=== PATIENT | male | born 2000 | race Caucasian/White ===

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

== ENCOUNTER 2019-05-03 17:51 | Emergency (ER) | payer BC ==
--- OUTSIDE RECORDS SUMMARY | 2019-05-03 17:55 | XMS REPORT | Summary of Care ---
:2000 Author Organization [facility] Address [address] [address] Care Team Providers Name Role Phone Deuce Valentin Primary Care Provider Reason for Visit Reason Comments Follow Up pt presents for follow up with medication Other pt has questions about how to go about donating live organs Encounter Details Date Type Department Care Team Description 04/30/2019 Office Visit [facility] Deuce Valentin MD Anxiety (Primary Dx); Practice [address] [facility] Bariatric surgery status [address] [place], [place] [id number] [place] [address] [phone] Allergies Active Allergy Reactions Severity Noted Date Comments Environmental Rash 05/17/2014 documented as of this encounter (statuses as of 04/30/2019) Medications Medication Sig Dispensed Refills Start Date End Date Status Multiple Vitamin Take 1 Tab 0 Active (MULTI-VITAMIN DAILY by mouth PO) DAILY. Cholecalciferol Take 1 Tab 0 Active (VITAMIN D3) 5000 by mouth units Oral Tab DAILY. escitalopram Take 1 Tab 30 Tab 2 04/30/2019 Active (LEXAPRO) 10 MG Oral by mouth TabIndications: DAILY. Anxiety escitalopram Take 1 Tab 30 Tab 1 03/26/2019 Discontinued (LEXAPRO) 10 MG Oral by mouth 0 (Reorder) TabIndications: DAILY. 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/08/2018 Recurrent major depressive disorder, in partial remission 08/08/2018 Bariatric surgery status 02/01/2018 Overview: May 01, 2017 Binge eating disorder 04/11/2016 Hyperinsulinemia 07/29/2015 Childhood obesity 07/02/2015 Back pain 08/28/2014 Depression 08/28/2014 Anxiety 08/28/2014 Hypothyroidism 05/17/2014 Unspecified asthma(493.90) 05/17/2014 documented as of this encounter (statuses as of 04/30/2019) Resolved Problems Problem Noted Date Resolved Date Morbid obesity due to excess calories 08/08/2018 08/08/2018 BMI, pediatric, 99th percentile or greater for age 0507/02/2015 08/08/2018 documented as of this encounter (statuses as of 04/30/2019) Immunizations Name Administration Dates Next Due DTAP Vaccine 09/29/2003, 06/15/2000, 1999, 1999, 1999 HIB 4 Dose Schedule 06/15/2000, 1999, 1999, 1999 Hepatitis A Vaccine Peds 10/03/2011, 12/04/2007 Hepatitis B Vaccine 1999, 1999, 1999, 1999, 1999 Human Papillomavirus 04/10/2012, 04/09/2012, 12/06/2011, 10/03/2011 Influenza (IM) Preservative Free 11/18/2016, 12/06/2011, 11/14/2008, 12/04/2007 Influenza Vaccine Peds Nasal 12/04/2007 Influenza Virus Vaccine Pres Free 6-35 11/18/2016 Months Influenza Virus Vaccine, Unspecified 12/06/2011, 11/14/2008 MENINGOCOCCAL CONJUGATE VACCINE 11/18/2016, 12/04/2007 MMR 09/29/2003, 06/15/2000 Meningococcal B Vaccine,Recombinant 08/25/2015, 07/07/2015 Novel [id number], Injectable 01/27/2009 Pneumococcal Conjugate Vaccine 04/09/2001 Pneumococcal Conjugate(13 Valent) 04/08/2001 Polio - Inactivated Vaccine 12/18/2003, 09/29/2003, 1999, 1999 Poliomyelitis vaccine 12/18/2003, 09/29/2003, 1999, 1999 TDAP Vaccine 06/03/2009 Varicella Vaccine Live 06/03/2009, 06/15/2000 documented as of this encounter Social History Tobacco Use Types Packs/Day Years Used Date Never Smoker Smokeless Tobacco: Never Used Alcohol Use Drinks/Week oz/Week Comments No 0 Standard drinks or equivalent 0.0 Sex Assigned at Date Recorded Not on file documented as of this encounter Last Filed Vital Signs Vital Sign Reading Time Taken Comments Blood Pressure 130/76 04/30/2019 9:52 AM EDT Pulse 67 04/30/2019 9:52 AM EDT Temperature - - Respiratory Rate - - Oxygen Saturation 100% 04/30/2019 9:52 AM EDT Inhaled Oxygen Concentration - - Weight 93.7 kg (206 lb 9.6 oz) 04/30/2019 9:52 AM EDT Height 185.4 cm (6' 1") 04/30/2019 9:52 AM EDT Body Mass Index 27.26 04/30/2019 9:52 AM EDT documented in this encounter Progress Notes Deuce Valentin MD - 04/30/2019 10:20 AM EDT PATIENT: Dionicio Weston : 2000 DATE OF SERVICE: 04/30/2019 CHIEF COMPLAINT: Chief Complaint Patient presents with ? Follow Up pt presents for follow up with medication ? Other pt has questions about how to go about donating live organs Subjective HISTORY OF PRESENT ILLNESS: Dionicio Weston is a 19-y.o. male. Hx of obesity s/p gastric bypass as a teen plus mood DO in to recheck his anxiety . 08/07 put on lexapro but he never came back Then 02/06 put on lexapro and not take it long by pill count. summer had back pain that was severe. Better with PT. 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 Mood was ok till beginning of this year and got anxious again. Work stress as being pushed to finish cars DANIELA , BV shaking and can cry . Went on the lexapro 10 mg and felt better. No more attacks He also wants to be a living organ donor Wants to know how Past Medical History: Diagnosis Date ? Anxiety and depression ? Asthma ? Atypical nevi Dr Flores ? Back pain ? Eating disorder ? High cholesterol ? Joint pain ? KAROLINA (obstructive sleep apnea) mild ? Pre-diabetes Family History Problem Relation Age of Onset ? Diabetes Other ? Hypertension Other ? Stroke Other ? Prostate Cancer Other ? Diabetes Mother ? GI Mother ? Depression/Depressed Mother ? Hypertension Father ? High Cholesterol Father ? Hypertension Other ? Asthma Other ? Arthritis Other ? Thyroid Disease Other ? Heart: Premature Coronary Disease (M<55; F<65) Other Current Outpatient Medications Medication Sig ? Cholecalciferol (VITAMIN D3) 5000 units Oral Tab Take 1 Tab by mouth DAILY. ? escitalopram (LEXAPRO) 10 MG Oral Tab Take 1 Tab by mouth DAILY. ? Multiple Vitamin (MULTI-VITAMIN DAILY PO) Take 1 Tab by mouth DAILY. No current facility-administered medications for this visit. Allergies Allergen Reactions ? Environmental Rash Social History Socioeconomic History ? Marital status: Single Spouse name: Not on file ? Number of children: Not on file ? Years of education: Not on file ? Highest education level: Not on file Occupational History ? Not on file Social Needs ? Financial resource strain: Not on file ? Food insecurity Worry: Not on file Inability: Not on file ? Transportation needs Medical: Not on file Non-medical: Not on file Tobacco Use ? Smoking status: Never Smoker ? Smokeless tobacco: Never Used Substance and Sexual Activity ? Alcohol use: No Alcohol/week: 0.0 standard drinks ? Drug use: No ? Sexual activity: Never Lifestyle ? Physical activity Days per week: Not on file Minutes per session: Not on file ? Stress: Not on file Relationships ? Social connections Talks on phone: Not on file Gets together: Not on file Attends [employer] service: Not on file Active member of club or organization: Not on file Attends meetings of clubs or organizations: Not on file Relationship status: Not on file ? Intimate partner violence Fear of current or ex partner: Not on file Emotionally abused: Not on file Physically abused: Not on file Forced sexual activity: Not on file Other Topics Concern ? Not on file Social History Narrative ? Not on file REVIEW OF SYSTEMS: ROS Objective PHYSICAL EXAM: VITALS: BP 130/76 (BP Location: Right arm, Patient Position: Sitting) | Pulse 67 | Ht 6' 1" (1.854 m) | Wt 206 lb 9.6 oz (93.7 kg) | SpO2 100% | BMI 27.26 kg/m Body mass index is 27.26 kg/m. Physical Exam Vitals signs reviewed. Constitutional: Appearance: He is not ill-appearing (weight is staying off). Cardiovascular: Rate and Rhythm: Normal rate and regular rhythm. Pulmonary: Effort: Pulmonary effort is normal. No respiratory distress. Psychiatric: Comments: Dress and hygiene good Good eye contact Thoughts and speech normal Affect Appropriate Mood normal ASSESSMENT / IMPRESSION: ICD-9-CM ICD-10-CM 1. Anxiety hx of non compliance. I would try to stay on lexapro for now and if just anxiety can come off in few mo but if depression to stay on the med 300.00 F41.9 escitalopram (LEXAPRO) 10 MG Oral Tab 2. Bariatric surgery status last labs in the summer. Told need yearly check. V45.86 Z98.84 Looked up on line can sign up to be donor but also will need labs to check for genetic matches Plan Author: Deuce Valentin MD 04/30/2019 10:22 documented in this encounter Plan of Treatment Health Maintenance Due Date Last Done Comments DTaP/Tdap/Td Vaccines (7 - 06/04/2019 06/03/2009, 09/29/2003, Tdap) 06/15/2000, Additional history exists DEPRESSION SCREENING 03/26/2020 03/26/2019, 02/01/2018 INFLUENZA VACCINE (#1) 2020 11/18/2016, 12/06/2011, Postponed from 11/14/2008, Additional 10/21/2018 (Patient history exists refused) PNEUMOCOCCAL 0-64 YRS Completed 04/09/2001, 04/08/2001 HEPATITIS A IMMUNIZATION Completed 10/03/2011, 12/04/2007 SERIES HPV IMMUNIZATION SERIES Completed 04/10/2012, 04/09/2012, 12/06/2011, Additional history exists MENINGOCOCCAL VACCINE IMM Completed 11/18/2016, 12/04/2007 documented as of this encounter Goals Goal Patient Goal Associated Recent Patient-Stated? Author Type Problems Progress Depression Depression 14 No belinda Valentin (PHQ-9) (02/01/2018 MD Deuce total score < 5 3:36 PM EST) Note: This is an individualized treatment (depression) goal for Dionicio Weston: Displayed above is your goal for a depression screening (PHQ-9) score that would indicate good control of your depression. Keep a regular sleep schedule Lifestyle No Deuce Valentin MD Note: This is an individualized lifestyle goal for Dionicio Weston: Please maintain a regular sleep schedule. This may help with some symptoms of depression. Keep immunizations current Lifestyle No Deuce Valentin MD Note: This is an individualized lifestyle goal for Dionicio Weston: Please be sure to keep up-to-date on recommended immunizations. For example, this would include a yearly influenza vaccine. Immunization status can be seen by looking at the Health Maintenance sections of your [facility], Plan of Care, and any After Visit Summaries. Take all prescribed medications as directed Self-management No Deuce Valentin MD Note: This is an individualized self-management goal for Dionicio Weston: Please take all prescribed medications as directed. 1. Do not skip doses. If you cannot afford your medications, talk with your doctor. 2. Use a pill reminder system such as a pill box if needed. Your pharmacist can help you with this. 3. Contact your Pharmacy 5 days before your medication runs out. If you cannot take your medications for any reasons, talk with your doctor. 4. Please bring all of your medication bottles and inhalers (or a list of all your medications/inhalers) with you to every visit. Potential barriers to meeting all of your care plan goals will continue to be addressed on an ongoing basis. documented as of this encounter Results Not on filedocumented in this encounter Visit Diagnoses Diagnosis Anxiety Anxiety state, unspecified Bariatric surgery status documented in this encounter Insurance Payer Benefit Plan / Subscriber ID Effective Dates Phone Address Type Group [employer] [id number] 2016-Present [employer] (Work) [id number] documented as of this encounter
--- OUTSIDE RECORDS SUMMARY | 2019-05-03 17:55 | XMS REPORT | Summary of Care ---
:2000 Author Organization [facility] Address [address] [address] Care Team Providers Name Role Phone Deuce Valentin Primary Care Provider Reason for Visit Reason Comments Anxiety would like to get back on medication Encounter Details Date Type Department Care Team Description 03/26/2019 Office Visit [facility][1] Sharlene Magallanes Anxiety (Primary Dx) [address] [place] [address] [facility] [phone] [place] [address] [phone] Allergies Active Allergy Reactions Severity Noted Date Comments Environmental Rash 05/17/2014 documented as of this encounter (statuses as of 03/26/2019) Medications Medication Sig Dispensed Refills Start Date End Date Status Multiple Vitamin Take 1 Tab by 0 Active (MULTI-VITAMIN DAILY PO) mouth DAILY. Cholecalciferol (VITAMIN Take 1 Tab by 0 Active D3) 5000 units Oral Tab mouth DAILY. escitalopram (LEXAPRO) 10 Take 1 Tab by 30 Tab 1 03/26/2019 Active MG Oral TabIndications: mouth DAILY. 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/08/2018 Recurrent major depressive disorder, in partial remission 08/08/2018 Bariatric surgery status 02/01/2018 Overview: May 01, 2017 Binge eating disorder 04/11/2016 Hyperinsulinemia 07/29/2015 Childhood obesity 07/02/2015 Back pain 08/28/2014 Depression 08/28/2014 Anxiety 08/28/2014 Hypothyroidism 05/17/2014 Unspecified asthma(493.90) 05/17/2014 documented as of this encounter (statuses as of 03/26/2019) Resolved Problems Problem Noted Date Resolved Date Morbid obesity due to excess calories 08/08/2018 08/08/2018 BMI, pediatric, 99th percentile or greater for age 0507/02/2015 08/08/2018 documented as of this encounter (statuses as of 03/26/2019) Immunizations Name Administration Dates Next Due Influenza (IM) Preservative Free 11/18/2016 MENINGOCOCCAL CONJUGATE VACCINE 11/18/2016 Meningococcal B Vaccine 08/25/2015, 07/07/2015 documented as of this encounter Social History Tobacco Use Types Packs/Day Years Used Date Never Smoker Smokeless Tobacco: Never Used Alcohol Use Drinks/Week oz/Week Comments No 0 Standard drinks or equivalent 0.0 Sex Assigned at Date Recorded Not on file Job Start Date Occupation Industry Not on file Not on file Not on file Travel History Travel Start Travel End No recent travel history available. documented as of this encounter Last Filed Vital Signs Vital Sign Reading Time Taken Comments Blood Pressure 130/64 03/26/2019 8:22 AM EST Pulse 66 03/26/2019 8:22 AM EST Temperature - - Respiratory Rate - - Oxygen Saturation 99% 03/26/2019 8:22 AM EST Inhaled Oxygen Concentration - - Weight 94.8 kg (209 lb) 03/26/2019 8:22 AM EST Height 185.4 cm (6' 1") 03/26/2019 8:22 AM EST Body Mass Index 27.57 03/26/2019 8:22 AM EST documented in this encounter Patient Instructions Patient InstructionsSharlene Magallanes FNP - 03/26/2019 8:20 AM ESTRe start Lexapro Follow up with Dr Valentin or Ms Bell in 4-6 weeks Call if any issues 8 :39 AM EST documented in this encounter Progress Notes Sharlene Magallanes FNP - 03/26/2019 8:20 AM EST PATIENT: Dionicio Weston : 2000 DATE OF SERVICE: 03/26/2019 CHIEF COMPLAINT: Chief Complaint Patient presents with Anxiety would like to get back on medication Subjective HISTORY OF PRESENT ILLNESS: Dionicio Weston is a 19-y.o. male. HPI Wants to go back on anxiety medication - last one was Lexapro 02/06. Past Medical History: Diagnosis Date Anxiety and depression Asthma Atypical nevi Dr Flores Back pain Eating disorder High cholesterol Joint pain [place] (obstructive sleep apnea) mild Pre-diabetes Family History Problem Relation Age of Onset Diabetes Other Hypertension Other Stroke Other Prostate Cancer Other Diabetes Mother GI Mother Depression/Depressed Mother Hypertension Father High Cholesterol Father Hypertension Other Asthma Other Arthritis Other Thyroid Disease Other Heart: Premature Coronary Disease (M<55; F<65) Other Current Outpatient Medications Medication Sig Cholecalciferol (VITAMIN D3) 5000 units Oral Tab Take 1 Tab by mouth DAILY. escitalopram (LEXAPRO) 10 MG Oral Tab Take 1 Tab by mouth DAILY. Multiple Vitamin (MULTI-VITAMIN DAILY PO) Take 1 Tab by mouth DAILY. No current facility-administered medications for this visit. Allergies Allergen Reactions Environmental Rash Social History Socioeconomic History Marital status: Single Spouse name: Not on file Number of children: Not on file Years of education: Not on file Highest education level: Not on file Occupational History Not on file Social Needs Financial resource strain: Not on file Food insecurity Worry: Not on file Inability: Not on file Transportation needs Medical: Not on file Non-medical: Not on file Tobacco Use Smoking status: Never Smoker Smokeless tobacco: Never Used Substance and Sexual Activity Alcohol use: No Alcohol/week: 0.0 standard drinks Drug use: No Sexual activity: Never Lifestyle Physical activity Days per week: Not on file Minutes per session: Not on file Stress: Not on file Relationships Social connections Talks on phone: Not on file Gets together: Not on file Attends religion service: Not on file Active member of club or organization: Not on file Attends meetings of clubs or organizations: Not on file Relationship status: Not on file Intimate partner violence Fear of current or ex partner: Not on file Emotionally abused: Not on file Physically abused: Not on file Forced sexual activity: Not on file Other Topics Concern Not on file Social History Narrative Not on file Over the last 2 weeks, have you been feeling down, depressed, anxious, or hopeless?: 1 Over the past 2 weeks, have you felt little interest or pleasure in doing things ?: 1 REVIEW OF SYSTEMS: Review of Systems Constitutional: Negative for malaise/fatigue. Psychiatric/Behavioral: Negative for depression, hallucinations, substance abuse and suicidal ideas.The patient is nervous/anxious and has insomnia. Objective PHYSICAL EXAM: VITALS: BP 130/64 | Pulse 66 | Ht 6' 1" (1.854 m) | Wt 209 lb (94.8 kg) | SpO2 99% | BMI 27.57kg/m Body mass index is 27.57 kg/m. Physical Exam Vitals signs and nursing note reviewed. Constitutional: Appearance: Normal appearance. Skin: General: Skin is warm and dry. Neurological: Mental Status: He is alert and oriented to person, place, and time. Psychiatric: Mood and Affect: Mood is anxious. Speech: Speech normal. Behavior: Behavior is cooperative. Thought Content: Thought content does not include homicidal or suicidal plan. Cognition and Memory: Cognition normal. Comments: Anxiety affecting work - poor sleep, panic attacks, worry. No recent counseling - last counselor retired due to health issues. Lexapro worked best , denies adverse effect. Will restart Lexapro at 10 mg a day - use and side effects reviewed with pt. Counseling encouraged. Pt to follow up with Dr Valentin or Ms Bell in 4-6 weeks ASSESSMENT / IMPRESSION: ICD-9-CM ICD-10-CM 1. Anxiety 300.00 F41.9 escitalopram (LEXAPRO) 10 MG Oral Tab Plan Re start Lexapro Follow up with Dr Valentin or Ms Bell in 4-6 weeks Call if any issues Author: ADINA Simpson 03/26/2019 08:43 documented in this encounter Plan of Treatment Date Type Specialty Care Team Description 04/30/2019 Office Visit Family Practice Deuce Valentin MD [address] [id number] [phone] Health Maintenance Due Date Last Done Comments DTaP/Tdap/Td Vaccines ( - 2010 Tdap) HPV IMMUNIZATION SERIES ( - 2010 Male 2-dose series) INFLUENZA VACCINE (#1) 2018 11/18/2016 DEPRESSION SCREENING 03/26/2020 03/26/2019, 02/01/2018 MENINGOCOCCAL VACCINE IMM Completed 11/18/2016 HEPATITIS A IMMUNIZATION Aged Out No longer eligible based SERIES on patient's age to complete this topic PNEUMOCOCCAL 0-64 YRS Aged Out No longer eligible based on patient's age to complete this topic documented as of this encounter Goals Goal Patient Goal Associated Recent Patient-Stated? Author Type Problems Progress Depression Depression 14 No Homero, screen (PHQ-9) (02/01/2018 MD Deuce total score < [...] Visit Diagnoses Diagnosis Anxiety Anxiety state, unspecified documented in this encounter Insurance Payer Benefit Plan / Subscriber ID Effective Dates Phone Address Type Group [employer] xxxxxxxxxxxx 2016-Present [employer] (Work) [id number] documented as of this encounter
[2019-05-03 18:44] VITALS: BP 138/71
--- NOTE | 2019-05-03 20:09 | UC ---
FLU HPI - HPI Summary HPI Summary: fatigue body aches cough sore throat for 2 days, no specific illness exposures - History of Current Complaint Chief Complaint: UCRespiratory Stated Complaint: SORE THROAT/COUGH Time Seen by Provider: 05/03/19 20:08 Hx Obtained From: Patient Onset/Duration: Sudden Onset, Lasting Days - 2 Pain Intensity: 3 Pain Scale Used: 0-10 Numeric Associated Signs & Symptoms: Positive: Fever - subjective, Myalgia, Cough, Sore Throat - Allergy/Home Medications Allergies/Adverse Reactions: Allergies Allergy/AdvReac Type Severity Reaction Status Date / Time No Known Allergies Allergy Verified 05/03/19 18:44 Home Medications: Home Medications Cholecalciferol (Vitamin D3) [Vitamin D3] 10,000 unit PO DAILY 02/28/16 [ History Confirmed 05/03/19] D-Methorphan/PE/Acetaminophen [Vicks Dayquil Cold & Flu 10-5-325 mg/15Ml] 1 liq PO ONCE PRN 05/03/19 [History Confirmed 05/03/19] Escitalopram * [Lexapro *] 15 mg PO DAILY 05/03/19 [History Confirmed 05/03/19] Multivitamin [Multivitamins] 1 each PO DAILY 05/03/19 [History Confirmed ] PMH/Surg Hx/FS Hx/Imm Hx Previously Healthy: Yes Psychological History: Depression Other History Of: Negative For: HIV, Hepatitis B, Hepatitis C, Anticoagulant Therapy - Surgical History Surgical History: Yes Surgery Procedure, Year, and Place: T&A, [facility] surgery (2018) - Family History Known Family History: Positive: Hypertension, Diabetes, Other - positive for unspecified CA. , Non-Contributory Negative: Cardiac Disease - Social History Occupation: Employed Full-time Lives: With Family Alcohol Use: None Substance Use Type: None Smoking Status (MU): Never Smoked Tobacco - Immunization History Vaccination Up to Date: Yes Review of Systems All Other Systems Reviewed And Are Negative: Yes Constitutional: Positive: Fever, Chills, Fatigue Skin: Positive: Negative Eyes: Positive: Negative ENT: Positive: Sore Throat Respiratory: Positive: Cough Cardiovascular: Positive: Negative Gastrointestinal: Positive: Negative Genitourinary: Positive: Negative Motor: Positive: Negative Neurovascular: Positive: Negative Musculoskeletal: Positive: Arthralgia, Myalgia Neurological/Mental Status: Positive: Negative Psychological: Positive: Negative Is Patient Immunocompromised?: No Physical Exam Triage Information Reviewed: Yes Appearance: Well-Appearing, No Pain Distress, Well-Nourished Vital Signs: Initial Vital Signs Temp 97.7 F 05/03/19 18:39 Pulse 62 05/03/19 18:39 Resp 16 05/03/19 18:39 BP 138/71 05/03/19 18:39 Pulse Ox 100 05/03/19 18:39 Vital Signs Reviewed: Yes Eye Exam: Normal Eyes: Positive: Conjunctiva Clear ENT Exam: Normal ENT: Positive: Normal ENT inspection, Hearing grossly normal, Pharynx normal, TMs normal, Uvula midline. Negative: Nasal congestion, Nasal drainage, Tonsillar swelling, Tonsillar exudate, Trismus, Muffled voice, Hoarse voice, Dental tenderness, Sinus tenderness Dental Exam: Normal Neck exam: Normal Neck: Positive: Supple, Nontender, No Lymphadenopathy Respiratory Exam: Normal Respiratory: Positive: Chest non-tender, Lungs clear, Normal breath sounds, No respiratory distress, No accessory muscle use Cardiovascular Exam: Normal Cardiovascular: Positive: RRR, No Murmur, Pulses Normal, Brisk Capillary Refill Musculoskeletal Exam: Normal Musculoskeletal: Positive: Strength Intact, ROM Intact, No Edema Neurological Exam: Normal Neurological: Positive: Alert, Muscle Tone Normal Psychological Exam: Normal Skin Exam: Normal Diagnostics - Laboratory Lab Results: influenza a/b -, rst - Flu Course/Dx - Course Course Of Treatment: rest increase fluids, tylenol, ibuprofen otc medications for symptom relief follow with pcp prn - Differential Dx/Diagnosis Provider Diagnosis: Viral syndrome Discharge ED - Sign-Out/Discharge Documenting (check all that apply): Patient Departure All imaging exams completed and their final reports reviewed: No Studies - Discharge Plan Condition: Stable Disposition: HOME Patient Education Materials: Upper Respiratory Infection (ED), Viral Syndrome ( ED) Referrals: Deuce Valentin MD [Primary Care Provider] - If Needed - Billing Disposition and Condition Condition: STABLE Disposition: Home - Attestation Statements Provider Attestation: This patient was not seen by me. I was available for consult. Chart reviewed. DOC
[2019-05-03 20:46] LABS: Influenza A Molecular Negative (Negative); Influenza B Molecular Negative (Negative)
== END 2019-05-03 21:45 | disposition home or self-care (01) ==
LOC: UCEAST 17:51
DX: B34.9 Viral infection, unspecified (principal); F32.9 Major depressive disorder, single episode, unspecified; Z79.899 Other long term (current) drug therapy
CPT/HCPCS: 87651; 99211; G0463